=== PATIENT | male | born 1965 | race Two or more races ===

== ENCOUNTER 2018-10-13 17:02 | Emergency (ER) | payer SELFPAY ==
[2018-10-13] MEDS ORDERED: DICYCLOMINE HCL 20 MG TABLET PO ONE (17:17)
--- NOTE | 2018-10-13 17:19 | ER Document Report ---
ED Medical Screen (RME) - General Chief Complaint: Abdominal Pain Stated Complaint: SHORTNESS OF BREATH Time Seen by Provider: 10/13/18 17:07 Notes: Patient is a 53-year-old male who presents to the emergency department with a chief complaint of left lower quadrant abdominal pain. He states that his pain started today and he states that it had doubled him over. He describes his pain as a stabbing pain. He also had a similar pain in the left upper quadrant before, but it went away. He states the pain in his left lower quadrant is constant. He was started on lisinopril/hydrochlorothiazide a week ago by his primary care provider and was also diagnosed with diabetes, which he is controlling through diet. Denies any nausea, vomiting, or diarrhea. His last bowel movement was about 4 to 5 hours ago. Exam: Mildly tender abdomen in left lower quadrant. I have greeted and performed a rapid initial assessment of this patient. A comprehensive ED assessment and evaluation of the patient, analysis of test results and completion of medical decision making process will be conducted by an additional ED providers. TRAVEL OUTSIDE OF THE [place] IN LAST 30 DAYS: No - Related Data Allergies/Adverse Reactions: No Known Drug Allergies Adverse Reaction (Verified 10/13/18 17:02) Past Medical History - Social History Frequency of alcohol use: None Drug Abuse: None - Past Medical History Cardiac Medical History: Reports: Hx Hypertension Renal/ Medical History: Denies: Hx Peritoneal Dialysis - Immunizations Hx Diphtheria, Pertussis, Tetanus Vaccination: Yes Physical Exam - Vital signs Vitals: Temp Pulse Resp BP Pulse Ox 97.9 F 115 H 16 132/98 H 97 10/13/18 17:05 10/13/18 17:05 10/13/18 17:05 10/13/18 17:05 10/13/18 17:05 Course - Vital Signs Vital signs: Temp Pulse Resp BP Pulse Ox 97.9 F 115 H 16 132/98 H 97 10/13/18 17:05 10/13/18 17:05 10/13/18 17:05 10/13/18 17:05 10/13/18 17:05
[2018-10-13 18:10] LABS: ABSOLUTE BASOPHILS # (AUTO) 0.1 10^3/uL (0.0-0.2); ABSOLUTE EOSINOPHILS # (AUTO) 0.3 10^3/uL (0.0-0.6); ABSOLUTE LYMPHOCYTES (AUTO) 2.2 10^3/uL (0.5-4.7); ABSOLUTE MONOCYTES (AUTO) 0.9 10^3/uL (0.1-1.4); ABSOLUTE NEUT (AUTO) 4.8 10^3/uL (1.7-8.2); BASOPHILS % (AUTO) 0.9 % (0-2); EOSINOPHILS % (AUTO) 3.3 % (0-6); HEMATOCRIT 51.4 % (37.9-51.0); HEMOGLOBIN 17.9 g/dL (13.5-17.0); LYMPHOCYTES % (AUTO) 26.5 % (13-45); MEAN CORPUSCULAR HEMOGLOBIN 30.4 pg (27.0-33.4); MEAN CORPUSCULAR HGB CONC 34.8 g/dL (32.0-36.0); MEAN CORPUSCULAR VOLUME 87 fl (80-97); MONOCYTES % (AUTO) 10.9 % (3-13); PLATELET COUNT 195 10^3/uL (150-450); RED BLOOD COUNT 5.88 10^6/uL (4.35-5.55); RED CELL DISTRIBUTION WIDTH 13.9 % (11.5-14.0); SEGMENTED NEUTROPHILS % (AUTO) 58.4 % (42-78); TOTAL CELLS COUNTED % (AUTO) 100 %; WHITE BLOOD COUNT 8.2 10^3/uL (4.0-10.5)
[2018-10-13 18:13] LABS: APPEARANCE,URINE SLIGHTLY-CLOUDY; BILIRUBIN,URINE NEGATIVE (NEGATIVE); COLOR,URINE AMBER; GLUCOSE, URINE NEGATIVE (NEGATIVE); KETONES,URINE NEGATIVE (NEGATIVE); LEUKOCYTE ESTERASE,URINE NEGATIVE (NEGATIVE); NITRITE,URINE NEGATIVE (NEGATIVE); PROTEIN,URINE NEGATIVE (NEGATIVE); URINE SPECIFIC GRAVITY 1.025
[2018-10-13 18:16] LABS: ALBUMIN 4.5 g/dL (3.5-5.0); ALKALINE PHOSPHATASE 74 U/L (38-126); ANION GAP 12 (5-19); ASPARTATE AMINO TRANSFERASE 24 U/L (17-59); BILIRUBIN,DIRECT 0.3 mg/dL (0.0-0.4); BLOOD UREA NITROGEN 30 mg/dL (7-20); CALCIUM 10.3 mg/dL (8.4-10.2); CARBON DIOXIDE 23 mmol/L (22-30); CHLORIDE 102 mmol/L (98-107); CREATINE KINASE 105 U/L (55-170); GLUCOSE 116 mg/dL (75-110); POTASSIUM 4.1 mmol/L (3.6-5.0)
--- NOTE | 2018-10-13 18:26 | ER Document Report ---
ED General - General Chief Complaint: Abdominal Pain Stated Complaint: SHORTNESS OF BREATH Time Seen by Provider: 10/13/18 17:07 TRAVEL OUTSIDE OF THE [place] IN LAST 30 DAYS: No - HPI Notes: 53-year-old male with a history of hypertension, smoker complains of left lower quadrant abdominal pain. Patient was at rest around 5 PM when he had sudden onset of sharp crampy relatively severe left lower left mid quadrant pain. Lasts approximately 15 to 20 minutes and then abated on its own. No associated vomiting or diarrhea. No history of diverticulitis. No fever, chills or sweats. Moderate intensity, nonradiating. States this is happened to him in the past and may occur every few months. No history of renal stones. No blood in his urine. No other modifying factors, no other associated symptoms, no other provocative or palliative factors. - Related Data Allergies/Adverse Reactions: No Known Drug Allergies Adverse Reaction (Verified 10/13/18 17:02) Past Medical History - Social History Smoking Status: Unknown if Ever Smoked Frequency of alcohol use: None Drug Abuse: None Family History: Reviewed & Not Pertinent Patient has suicidal ideation: No Patient has homicidal ideation: No - Past Medical History Cardiac Medical History: Reports: Hx Hypertension Renal/ Medical History: Denies: Hx Peritoneal Dialysis - Immunizations Hx Diphtheria, Pertussis, Tetanus Vaccination: Yes Physical Exam - Vital signs Vitals: Temp Pulse Resp BP Pulse Ox 97.9 F 115 H 16 132/98 H 97 10/13/18 17:05 10/13/18 17:05 10/13/18 17:05 10/13/18 17:05 10/13/18 17:05 - Notes Notes: General: Well developed . HEENT: Normocephalic, atraumatic. Pupils equal round reactive to light. No JVD. Chest: No trauma. Respiratory: Good air exchange, normal excursion. Cardiac: Regular rhythm. No murmurs or gallops. Abdomen: Soft, benign. Nondistended. Nontender. Back: No asymmetry or gross abnormality. Motor: Grossly normal power and tone. Neurologic: Alert, nonfocal. Cranial nerves II-12 are intact. Sensation intact. Vascular: Well perfused. Normal peripheral pulses. Skin: No petechiae or purpura. Course - Re-evaluation Re-evalutation: 08/10/19 18:29 Labs reviewed. CBC chemistries LFTs unremarkable. Urine unremarkable. Acute abdominal series is unremarkable. Patient has benign exam and reevaluation. At this point I believe he safe her primary care follow-up, will return if worsening, 24-hour recheck. - Vital Signs Vital signs: Temp Pulse Resp BP Pulse Ox 97.9 F 115 H 16 132/98 H 99 10/13/18 17:05 10/13/18 17:05 10/13/18 17:05 10/13/18 17:05 10/13/18 17:30 - Laboratory Result Diagrams: 10/13/18 17:25 10/13/18 17:25 Laboratory results interpreted by me: 10/13/18 10/13/18 10/13/18 17:25 17:25 17:45 RBC 5.88 H Hgb 17.9 H Hct 51.4 H Sodium 136.6 L BUN 30 H Creatinine 1.49 H Est GFR (Non-Af Amer) 50 L Glucose 116 H Calcium 10.3 H Urine Urobilinogen 2.0 H - Transfer of Care Notes: 53-year-old male presents with resolved left lower quadrant abdominal pain. Will consider transient renal colic, diverticulitis unlikely given the rapidity of onset and offset. No high risk features to suggest vascular emergency and p ain is resolved. Doubt AAA. Patient was seen by the physician in triage she was ordered studies and labs. These are currently pending. Will perform serial abdominal exams and reevaluate. Discharge - Discharge Clinical Impression: Abdominal pain Qualifiers: Abdominal location: left lower quadrant Qualified Code(s): R10.32 - Left lower quadrant pain Condition: Stable Disposition: HOME, SELF-CARE Instructions: Abdominal Pain ([facility]) Additional Instructions: Follow-up with your primary care doctor within 24 to 48 hours Prescriptions: Dicyclomine HCl [Bentyl 20 mg Tablet] 20 mg PO Q8 #12 tablet Dicyclomine HCl [Bentyl 20 mg Tablet] 20 mg PO Q8 #12 tablet Forms: Smoking Cessation Education
--- NOTE | 2018-10-13 18:27 | RADIOLOGY REPORT (SQ) ---
EXAM DESCRIPTION: ACUTE ABDOMEN SERIES COMPLETED DATE/TIME: 10/13/2018 6:05 pm REASON FOR STUDY: LLQ abd pain/shortness of breath COMPARISON: None. NUMBER OF VIEWS: Four-views. TECHNIQUE: Frontal chest, supine abdomen and upright/decubitus abdomen radiographic images acquired. LIMITATIONS: None. FINDINGS: CHEST: Lungs clear of infiltrates. FREE AIR: None. No abnormal gas collections. BOWEL GAS PATTERN: Nonobstructive pattern. No dilated loops or air fluid levels. CALCIFICATIONS: No suspicious calcifications. HARDWARE: None in the abdomen. SOFT TISSUES: No gross mass or suggestion of organomegaly. BONES: No acute fracture. No worrisome bone lesions. OTHER: No other significant finding. IMPRESSION: NO RADIOGRAPHIC EVIDENCE FOR ACUTE ABDOMINAL DISEASE. TECHNICAL DOCUMENTATION: JOB ID: [id number] [employer]- All Rights Reserved Reading location - IP/workstation name: [email or web address]
[2018-10-13 18:29] LABS: CREATINE KINASE MB 0.46 ng/mL (<4.55); TROPONIN I < 0.012 ng/mL
--- NOTE | 2018-10-13 18:30 | EKG REPORT ---
SEVERITY:- ABNORMAL ECG - SINUS TACHYCARDIA BORDERLINE RIGHT AXIS DEVIATION NONSPECIFIC T ABNORMALITIES, INFERIOR LEADS : Confirmed by: Haris Magana MD 13-Oct-2018 18:29:47
[2018-10-13 19:08] VITALS: BP 105/70
== END 2018-10-13 19:13 | disposition home or self-care (01) ==
LOC: ER 17:02
DX: R10.32 Left lower quadrant pain (principal); R06.02 Shortness of breath; I10 Essential (primary) hypertension
CPT/HCPCS: 93005; 99284; 36415; 82553; 82550; 85025; 80053; 81001; 84484; 74022; 93010; J3490

== ENCOUNTER 2019-06-25 18:21 | Emergency (ER) | payer BC ==
--- NOTE | 2019-06-25 18:33 | ER Document Report ---
ED General - General Chief Complaint: Breathing Difficulty Stated Complaint: DIFFICULTY BREATHING Primary Care Provider: FLORENCIO PATEL MD [Primary Care Provider] - Follow up as needed Notes: 53-year-old male presents with shortness of breath. Intermittent for about a week. Has had the same in the past and has not gotten a good answer as to why it is occurring. He smokes some does not have COPD emphysema or CHF. He has no chest pain or palpitations. Shortness of breath occurred about 2 weeks ago he was diagnosed with some kind of disease and given "multiple antibacterial agents" after a telemetry visited urgent care without an x-ray or physical exam. He got slightly better but is now intermittently having shortness of breath as well. Not always exertional not always positional, random. Mild dry cough that was much better than it was before. No fever. No exposure to coronavirus patients, and has had a negative coronavirus test in the last 3 days. Denies edema or swelling. TRAVEL OUTSIDE OF THE [place] IN LAST 30 DAYS: No - Related Data Allergies/Adverse Reactions: No Known Drug Allergies Adverse Reaction (Verified 10/13/18 17:02) Past Medical History - Social History Smoking Status: Current Every Day Smoker Smoking Education Provided: Yes - The patient ED visit today was directly related to their abuse of tobacco. Family History: Reviewed & Not Pertinent - Past Medical History Cardiac Medical History: Reports: Hx Hypertension Renal/ Medical History: Denies: Hx Peritoneal Dialysis - Immunizations Hx Diphtheria, Pertussis, Tetanus Vaccination: Yes Review of Systems - Review of Systems Notes: REVIEW OF SYSTEMS GEN: Denies fever, chills, weight loss ENT: Denies sore throat, nasal discharge, ear pain EYES: Denies blurry vision, eye pain, discharge CV: Denies chest pain, palpitations, edema RESP: Dyspnea GI: Denies abdominal pain, nausea, vomiting, diarrhea MSK: Denies joint pain/swelling, edema, SKIN: Denies rash, skin lesions LYMPH: Denies swollen glands/lymph nodes NEURO: Denies headache, focal weakness or numbness, dizziness PSYCH: Denies depression, suicidal or homicidal ideation PHYSICAL EXAMINATION General: No acute distress, well-nourished Head: Atraumatic, normocephalic ENT: Mouth normal, oropharynx moist, no exudates or tonsillar enlargement Eyes: Conjunctiva normal, pupils equal, lids normal Neck: No JVD, supple, no guarding CVS: Normal rate, regular rhythm, no murmurs Resp: No resp distress, equal and normal breath sounds bilaterally GI: Nondistended, soft, no tenderness to palpation, no rebound or guarding Ext: No deformities, no edema, normal range of motion in upper and lower ext Back: No CVA or midline TTP Skin: No rash, warm Lymphatic: No lymphadeopathy noted Neuro: Awake, alert. Face symmetric. GCS 15. Physical Exam - Vital signs Vitals: Temp Pulse Resp BP Pulse Ox 98.5 F 100 17 111/80 95 06/25/19 18:32 06/25/19 18:32 06/25/19 18:32 06/25/19 18:32 06/25/19 18:32 Course - Re-evaluation Re-evalutation: 06/25/19 18:50 Patient presents with intermittent shortness of breath for a couple of weeks. His vitals are normal he is afebrile he is negative for coronavirus which portends at least a 75% chance of him actually being negative, has no fever current signs of dyspnea, stigmata of heart failure COPD on exam. Will check chest x-ray to rule out pneumonia/pneumothorax/pulmonary edema, and check EKG to rule out significant arrhythmia ischemia or structural disease but based on his current presentation he can be discharged if this work-up is negative. I have discussed with the patient there likely diagnosis, aftercare plan, follow-up plans and my usual and customary return precautions. They verbalized understanding of this. - Vital Signs Vital signs: Temp Pulse Resp BP Pulse Ox 98.5 F 100 17 111/80 95 06/25/19 18:32 06/25/19 18:32 06/25/19 18:32 06/25/19 18:32 06/25/19 18:32 - Diagnostic Test Radiology reviewed: Image reviewed, Reports reviewed - EKG Interpretation by Me EKG shows normal: Sinus rhythm Rate: Normal Rhythm: NSR Discharge - Discharge Clinical Impression: Shortness of breath Condition: Good Disposition: HOME, SELF-CARE Instructions: Dyspnea, Nonspecific ([facility]) Additional Instructions: Please follow-up with your primary care within 1 week for further testing as needed. Please return to the ER for any worsening symptoms. Referrals: FLORENCIO PATEL MD [Primary Care Provider] - Follow up as needed
[2019-06-25 19:05] VITALS: BP 111/80
--- NOTE | 2019-06-25 19:15 | RADIOLOGY REPORT (SQ) ---
EXAM DESCRIPTION: CHEST SINGLE VIEW IMAGES COMPLETED DATE/TIME: 06/25/2019 7:03 pm REASON FOR STUDY: SOB COMPARISON: 2016 NUMBER OF VIEWS: One view. TECHNIQUE: Single frontal radiographic view of the chest acquired. LIMITATIONS: None. FINDINGS: LUNGS AND PLEURA: No opacities, masses or pneumothorax. No pleural effusion. MEDIASTINUM AND HILAR STRUCTURES: No masses. Contour normal. HEART AND VASCULAR STRUCTURES: Heart normal in size. Normal vasculature. BONES: No acute findings. HARDWARE: None in the chest. OTHER: No other significant finding. IMPRESSION: NO SIGNIFICANT RADIOGRAPHIC FINDING IN THE CHEST. TECHNICAL DOCUMENTATION: JOB ID: [id number] 2010 [employer]- All Rights Reserved Reading location - IP/workstation name: [email or web address]
--- NOTE | 2019-06-26 07:19 | EKG REPORT ---
SEVERITY:- NORMAL ECG - SINUS RHYTHM VPC : Confirmed by: Freddie Cloud 26-Jun-2019 07:19:00
== END 2019-06-25 19:00 | disposition home or self-care (01) ==
LOC: ER 18:21
DX: R06.02 Shortness of breath (principal); R05 Cough; F17.200 Nicotine dependence, unspecified, uncomplicated; I10 Essential (primary) hypertension
CPT/HCPCS: 71045; 93005; 93010; 99285

== ENCOUNTER 2019-08-14 03:04 | Emergency (ER) | payer BC ==
--- NOTE | 2019-08-14 03:34 | ER Document Report ---
ED Medical Screen (RME) - General Stated Complaint: DIFFICULT IN BREATHING/SORE THROAT Time Seen by Provider: 08/14/19 03:31 Primary Care Provider: FLORENCIO PATEL MD [Primary Care Provider] - Follow up as needed Notes: Patient is a 53-year-old male who presents to the emergency department with a chief complaint of shortness of breath. Patient states that he has had some shortness of breath for the past about a month. He was tested for COVID-19, and states that that was negative. He also recently had an antibody test, which he reports is negative. Patient is a current everyday smoker. Exam: Clear lung sounds throughout. I have greeted and performed a rapid initial assessment of this patient. A comprehensive ED assessment and evaluation of the patient, analysis of test results and completion of medical decision making process will be conducted by an additional ED providers. TRAVEL OUTSIDE OF THE [place] IN LAST 30 DAYS: No - Related Data Allergies/Adverse Reactions: No Known Drug Allergies Adverse Reaction (Verified 10/13/18 17:02) Past Medical History - Social History Frequency of alcohol use: None Drug Abuse: None - Past Medical History Cardiac Medical History: Reports: Hx Hypertension Renal/ Medical History: Denies: Hx Peritoneal Dialysis - Immunizations Hx Diphtheria, Pertussis, Tetanus Vaccination: Yes Physical Exam - Vital signs Vitals: Temp Pulse Resp BP Pulse Ox 98.5 F 85 20 167/99 H 98 08/14/19 03:16 08/14/19 03:16 08/14/19 03:16 08/14/19 03:16 08/14/19 03:16 Course - Vital Signs Vital signs: Temp Pulse Resp BP Pulse Ox 98.5 F 85 20 167/99 H 98 08/14/19 03:27 08/14/19 03:16 08/14/19 03:16 08/14/19 03:16 08/14/19 03:16 Doctor's Discharge - Discharge Referrals: FLORENCIO PATEL MD [Primary Care Provider] - Follow up as needed
[2019-08-14 03:52] LABS: ABSOLUTE BASOPHILS # (AUTO) 0.1 10^3/uL (0.0-0.2); ABSOLUTE EOSINOPHILS # (AUTO) 0.2 10^3/uL (0.0-0.6); ABSOLUTE LYMPHOCYTES (AUTO) 1.5 10^3/uL (0.5-4.7); ABSOLUTE MONOCYTES (AUTO) 0.5 10^3/uL (0.1-1.4); ABSOLUTE NEUT (AUTO) 3.1 10^3/uL (1.7-8.2); BASOPHILS % (AUTO) 1.3 % (0-2); EOSINOPHILS % (AUTO) 3.8 % (0-6); HEMATOCRIT 48.4 % (37.9-51.0); HEMOGLOBIN 16.8 g/dL (13.5-17.0); LYMPHOCYTES % (AUTO) 28.5 % (13-45); MEAN CORPUSCULAR HEMOGLOBIN 31.3 pg (27.0-33.4); MEAN CORPUSCULAR HGB CONC 34.6 g/dL (32.0-36.0); MEAN CORPUSCULAR VOLUME 90 fl (80-97); PLATELET COUNT 179 10^3/uL (150-450); RED BLOOD COUNT 5.35 10^6/uL (4.35-5.55); RED CELL DISTRIBUTION WIDTH 13.8 % (11.5-14.0); SEGMENTED NEUTROPHILS % (AUTO) 57.4 % (42-78); TOTAL CELLS COUNTED % (AUTO) 100 %; WHITE BLOOD COUNT 5.3 10^3/uL (4.0-10.5)
[2019-08-14 04:17] LABS: ALBUMIN 4.5 g/dL (3.5-5.0); ALKALINE PHOSPHATASE 60 U/L (38-126); ANION GAP 10 (5-19); ASPARTATE AMINO TRANSFERASE 26 U/L (17-59); BILIRUBIN,TOTAL 0.4 mg/dL (0.2-1.3); BLOOD UREA NITROGEN 10 mg/dL (7-20); CALCIUM 10.1 mg/dL (8.4-10.2); CARBON DIOXIDE 23 mmol/L (22-30); CHLORIDE 106 mmol/L (98-107); GLUCOSE 126 mg/dL (75-110); POTASSIUM 4.1 mmol/L (3.6-5.0); TOTAL PROTEIN 7.7 g/dL (6.3-8.2)
--- NOTE | 2019-08-14 05:11 | RADIOLOGY REPORT (SQ) ---
CLINICAL HISTORY: shortness of breath COMPARISON: None. TECHNIQUE: XR CHEST 2 VIEWS 08/14/2019 3:31 AM CDT FINDINGS: Cardiac silhouette is normal in size. Lungs are clear without consolidation, atelectasis, mass or edema. There is no pleural effusion. There is no pneumothorax. There are no acute osseous findings. IMPRESSION: Clear lungs.
--- NOTE | 2019-08-14 08:22 | ER Document Report ---
ED General - General Chief Complaint: Breathing Difficulty Stated Complaint: DIFFICULT IN BREATHING/SORE THROAT Time Seen by Provider: 08/14/19 03:31 Primary Care Provider: FLORENCIO PATEL MD [Primary Care Provider] - Follow up as needed Mode of Arrival: Ambulatory Information source: Patient TRAVEL OUTSIDE OF THE [place] IN LAST 30 DAYS: No - HPI Onset: Other - over the last month Onset/Duration: Gradual Quality of pain: No pain Severity: Moderate Associated symptoms: Nonproductive cough Exacerbated by: Other - exertion Relieved by: Other - rest Similar symptoms previously: No Recently seen / treated by doctor: No Notes: 53 year old male smoker with a history of Hypertension and Obesity here in the ER for 1 month of shortness of breath. The patient was seen here in June 2019 for shortness of breath and has a work up which showed no acute process. The patient denies chest pain, fevers, chills, sweats, nausea, vomiting. The patient does endorse a scratchy throat and swollen sinuses at times. The patient says she has an ENT appointment scheduled for this issue. The patient says she feels out of breath with minimal activity and this is new for him. The patient smokes and he has never been worked up for COPD. The patient has a family history of CAD and he has never been worked up for this either. - Related Data Allergies/Adverse Reactions: No Known Drug Allergies Adverse Reaction (Verified 10/13/18 17:02) Past Medical History - General Information source: Patient - Social History Smoking Status: Current Every Day Smoker Frequency of alcohol use: None Drug Abuse: None Family History: Reviewed & Not Pertinent Patient has homicidal ideation: No - Past Medical History Cardiac Medical History: Reports: Hx Hypertension Renal/ Medical History: Denies: Hx Peritoneal Dialysis - Immunizations Hx Diphtheria, Pertussis, Tetanus Vaccination: Yes Review of Systems - Review of Systems Constitutional: Weakness EENT: Throat pain Cardiovascular: No symptoms reported Respiratory: Cough, Short of breath Gastrointestinal: No symptoms reported Genitourinary: No symptoms reported Male Genitourinary: No symptoms reported Musculoskeletal: No symptoms reported Skin: No symptoms reported Hematologic/Lymphatic: No symptoms reported Neurological/Psychological: No symptoms reported -: Yes All other systems reviewed and negative Physical Exam - Vital signs Vitals: Temp Pulse Resp BP Pulse Ox 98.5 F 85 20 167/99 H 98 08/14/19 03:16 06/10/20 03:16 08/14/19 03:16 08/14/19 03:16 08/14/19 03:16 - Notes Notes: GENERAL: Well-appearing, well-nourished and in no acute distress. HEAD: Atraumatic, normocephalic. EYES: Pupils equal round and reactive to light, extraocular movements intact, sclera anicteric, conjunctiva are normal. ENT: External ears normal, nares patent, oropharynx clear without exudates. Moist mucous membranes. NECK: Normal range of motion, supple without lymphadenopathy or JVD. LUNGS: Breath sounds clear to auscultation bilaterally and equal. No wheezes rales or rhonchi. HEART: Regular rate and rhythm without murmurs, rubs or gallops. ABDOMEN: Soft, nontender, normoactive bowel sounds. No guarding, no rebound. No masses appreciated. EXTREMITIES: Normal range of motion, no pitting or edema. No clubbing or cyanosis. NEUROLOGICAL: Cranial nerves II through XII grossly intact. Normal speech, normal gait. PSYCH: Normal mood, normal affect. SKIN: Warm, Dry, normal turgor, no rashes or lesions noted. Course - Re-evaluation Re-evalutation: 08/14/19 11:48 The patient is here for 1 month of shortness of breath. Work up was unremarkable except for an elevated D-Dimer. Follow up CT showed no PE but some lung nodules. Patient was told to follow up with a Locomotive Repairer Diesel for work up of possible COPD and Sleep Apnea and to follow his lung nodules. Patient told to follow up with a Motorcycle Riding Instructor for an outpatient cardiac stress test for work up of possible CAD. Patient already has a follow up with ENT for work up of sinus issues. - Vital Signs Vital signs: Temp Pulse Resp BP Pulse Ox 98.5 F 85 13 113/75 99 08/14/19 03:27 08/14/19 03:16 08/14/19 10:46 08/14/19 10:46 08/14/19 10:46 - Laboratory Result Diagrams: 08/14/19 03:42 08/14/19 03:42 Laboratory results interpreted by me: 08/14/19 08/14/19 03:42 03:42 D-Dimer 1.45 H Glucose 126 H - Diagnostic Test Radiology reviewed: Image reviewed, Reports reviewed - EKG Interpretation by Me EKG shows normal: Sinus rhythm, Intervals, QRS Complexes, ST-T Waves Rate: Normal Rhythm: NSR [place]/QRS: Left axis deviation When compared to previous EKG there are: No significant change Additional EKG results interpreted by me: 08/14/19 08:22 PVCs Discharge - Discharge Clinical Impression: Shortness of breath, Weakness Condition: Stable Disposition: HOME, SELF-CARE Additional Instructions: Follow up with your primary care doctor and consider follow up with a Locomotive Repairer Diesel (Lung Doctor) and Motorcycle Riding Instructor (Heart Doctor). You have been having trouble breathing. You have follow up with an ENT Doctor scheduled and you can have your sinuses evaluated there. You may need to be worked up for COPD and Sleep Apnea by a Locomotive Repairer Diesel so discuss with them. You had a CT Chest in the ER today which showed a lung nodule but no blood clots or evidence of COPD. You should have an outpatient cardiac stress test to ensure your heart is not the cause of your shortness of breath. Referrals: FLORENCIO PATEL MD [Primary Care Provider] - Follow up as needed
--- NOTE | 2019-08-14 10:49 | RADIOLOGY REPORT (SQ) ---
EXAM DESCRIPTION: CTA CHEST IMAGES COMPLETED DATE/TIME: 08/14/2019 10:31 am REASON FOR STUDY: eval for PE COMPARISON: PA and lateral views of the chest from 05/14/2019. TECHNIQUE: CT scan of the chest performed using helical scanning technique with dynamic intravenous contrast injection. Images reviewed with lung, soft tissue and bone windows. Reconstructed coronal and sagittal MPR images reviewed. Additional 3 dimensional post-processing performed to develop Maximal Intensity Projection images (AK P). All images stored on PACS. All CT scanners at this facility use dose modulation, iterative reconstruction, and/or weight based d osing when appropriate to reduce radiation dose to as low as reasonably achievable (ALARA). [facility]: Dose Right [facility]: CareDose [facility]: Dose Right [facility]: Teradose 4D [facility]: Attachments.me CONTRAST TYPE AND DOSE: 72 mL Omnipaque 350- low osmolar. Contrast bolus optimized for the pulmonary arteries. RENAL FUNCTION: Creatinine 1.04 milligrams/deciliter RADIATION DOSE: CT Rad equipment meets quality standard of care and radiation dose reduction techniq ues were employed. CTDIvol: 9.9 - 27.4 mGy. DLP: 1120 mGy-cm. LIMITATIONS: None. FINDINGS: LUNGS AND PLEURA: The trachea and main bronchi are patent. There is no consolidation, miguel und-glass opacification or pleural effusion. LUNG NODULES: 4 mm perifissural nodule in the right middle lobe (image 62 of series 4), solid 4 mm no dule in the right lower lobe (image 74 of series 4) and solid 4 mm nodule in the left lower lobe (natasha ge 92 of series 4). AORTA AND GREAT VESSELS: Variant 2 vessel arch with a common origin of the brachiocephalic and left common carotid arteries. There is no thoracic aortic dissection or aneurysm. HEART: No cardiomegaly or pericardial effusion. PULMONARY ARTERIES: No emboli. HILAR AND MEDIASTINAL STRUCTURES: No adenopathy or mass. HARDWARE: None in the chest. UPPER ABDOMEN: No acute findings. THYROID AND OTHER SOFT TISSUES: No mass or adenopathy. BONES: No fracture or osseous lesion. 3D MIPS: Confirm above findings. OTHER: No other finding. IMPRESSION: 1. No pulmonary emboli. 2. No acute cardiopulmonary process. 3. Solid 4 mm nodules in the right lower lobe and left lower lobe. Per the 2017 Fleischner Society criteria a patient at low risk for lung cancer with multiple solid nodules that measure less than 6 m m requires no routine follow-up. COMMENT: Quality ID # [id number]: Final reports with documentation of one or more dose reduction techniques (e.g., Automated exposure control, adjustment of the mA and/or kV according to patient size, use of iterative reconstruction technique) TECHNICAL DOCUMENTATION: JOB ID: [id number] 2010 [employer]- All Rights Reserved Reading location - IP/workstation name: [email or web address]
--- NOTE | 2019-08-14 11:08 | EKG REPORT ---
SEVERITY:- BORDERLINE ECG - SINUS RHYTHM VENTRICULAR PREMATURE COMPLEX LEFT AXIS DEVIATION BORDERLINE T WAVE ABNORMALITIES : Confirmed by: Marcelle Amin MD 14-Aug-2019 11:08:13
[2019-08-14 12:02] VITALS: BP 138/85
== END 2019-08-14 12:03 | disposition home or self-care (01) ==
LOC: ER 03:04
DX: R06.02 Shortness of breath (principal); R53.1 Weakness; R91.8 Other nonspecific abnormal finding of lung field; R79.89 Other specified abnormal findings of blood chemistry; I10 Essential (primary) hypertension; R05 Cough; J02.9 Acute pharyngitis, unspecified; F17.200 Nicotine dependence, unspecified, uncomplicated; Z82.49 Family history of ischemic heart disease and other diseases of the circulatory system
CPT/HCPCS: 36415; 71046; 71275; 80053; 83880; 84484; 85025; 85379; 93005; 93010; 99285

== ENCOUNTER → 2019-08-14 | Outpatient (CLI) | payer BC | LOC: OD 17:01 | PROVIDERS: ATTEND Otolaryngology | DX: J30.9 Allergic rhinitis, unspecified (principal) | CPT/HCPCS: 36415; 82785; 86003 ==

== ENCOUNTER 2019-10-11 07:46 | Emergency (ER) | payer BC ==
--- NOTE | 2019-10-11 09:39 | EKG REPORT ---
SEVERITY:- NORMAL ECG - SINUS RHYTHM : Confirmed by: Haris Magana MD 11-Oct-2019 09:39:30
--- NOTE | 2019-10-11 10:25 | RADIOLOGY REPORT (SQ) ---
EXAM DESCRIPTION: CHEST SINGLE VIEW IMAGES COMPLETED DATE/TIME: 10/11/2019 10:15 am REASON FOR STUDY: shortness of breath COMPARISON: 10/03/2019 EXAM PARAMETERS: NUMBER OF VIEWS: One view. TECHNIQUE: Single frontal radiographic view of the chest acquired. RADIATION DOSE: NA LIMITATIONS: None. FINDINGS: LUNGS AND PLEURA: No opacities, masses or pneumothorax. No pleural effusion. MEDIASTINUM AND HILAR STRUCTURES: No masses. Contour normal. HEART AND VASCULAR STRUCTURES: Heart normal in size. Normal vasculature. BONES: No acute findings. HARDWARE: None in the chest. OTHER: No other significant finding. IMPRESSION: NO ACUTE RADIOGRAPHIC FINDING IN THE CHEST. TECHNICAL DOCUMENTATION: JOB ID: [id number] [employer]- All Rights Reserved Reading location - IP/workstation name: [email or web address]
[2019-10-11 11:07] LABS: APPEARANCE,URINE CLEAR; BILIRUBIN,URINE NEGATIVE (NEGATIVE); COLOR,URINE STRAW; GLUCOSE, URINE NEGATIVE (NEGATIVE); KETONES,URINE TRACE mg/dL (NEGATIVE); LEUKOCYTE ESTERASE,URINE NEGATIVE (NEGATIVE); NITRITE,URINE NEGATIVE (NEGATIVE); PROTEIN,URINE NEGATIVE (NEGATIVE); URINE SPECIFIC GRAVITY 1.005; UROBILINOGEN,URINE NEGATIVE mg/dL (<2.0)
[2019-10-11 11:09] LABS: ABSOLUTE BASOPHILS # (AUTO) 0.1 10^3/uL (0.0-0.2); ABSOLUTE EOSINOPHILS # (AUTO) 0.4 10^3/uL (0.0-0.6); ABSOLUTE LYMPHOCYTES (AUTO) 1.5 10^3/uL (0.5-4.7); ABSOLUTE MONOCYTES (AUTO) 0.4 10^3/uL (0.1-1.4); ABSOLUTE NEUT (AUTO) 3.5 10^3/uL (1.7-8.2); BASOPHILS % (AUTO) 1.2 % (0-2); EOSINOPHILS % (AUTO) 6.1 % (0-6); HEMATOCRIT 50.5 % (37.9-51.0); HEMOGLOBIN 17.3 g/dL (13.5-17.0); LYMPHOCYTES % (AUTO) 25.7 % (13-45); MEAN CORPUSCULAR HEMOGLOBIN 30.6 pg (27.0-33.4); MEAN CORPUSCULAR HGB CONC 34.3 g/dL (32.0-36.0); MEAN CORPUSCULAR VOLUME 89 fl (80-97); MONOCYTES % (AUTO) 7.3 % (3-13); PLATELET COUNT 177 10^3/uL (150-450); RED BLOOD COUNT 5.68 10^6/uL (4.35-5.55); SEGMENTED NEUTROPHILS % (AUTO) 59.7 % (42-78); TOTAL CELLS COUNTED % (AUTO) 100 %; WHITE BLOOD COUNT 5.9 10^3/uL (4.0-10.5)
[2019-10-11 11:26] LABS: ALBUMIN 4.6 g/dL (3.5-5.0); ALKALINE PHOSPHATASE 68 U/L (38-126); ANION GAP 8 (5-19); ASPARTATE AMINO TRANSFERASE 28 U/L (17-59); BLOOD UREA NITROGEN 9 mg/dL (7-20); CARBON DIOXIDE 26 mmol/L (22-30); CHLORIDE 104 mmol/L (98-107); GLUCOSE 112 mg/dL (75-110); TOTAL PROTEIN 7.9 g/dL (6.3-8.2)
[2019-10-11 11:38] LABS: NT PRO BNP 38 pg/mL (<125)
[2019-10-11 11:40] LABS: TROPONIN I < 0.012 ng/mL
--- NOTE | 2019-10-11 14:07 | ER Document Report ---
Entered by EMILIANA NEVAREZ SCRIBE 10/11/19 1114 Acting as scribe for:YU BACA MD ED Respiratory Problem - General Chief Complaint: Shortness Of Breath Stated Complaint: SHORTNESS OF BREATH,SORE THROAT Time Seen by Provider: 10/11/19 10:13 Primary Care Provider: RENARD WALTON MD [Primary Care Provider] - Follow up as needed Information source: Patient Notes: This 54-year-old male patient presents to the emergency department today with complaints of continued shortness of breath. Patient states that this has been an ongoing issue for at least 3 months. Last week the patient had a pulmonary function test which was normal and the next day he came into the emergency department for shortness of breath. At that time he told the provider that "his lungs just did not feel like they were expanding". Reviewing the note from that visit, it mentions that it sounds like he was just here to have his scheduled echocardiogram done in the emergency department. Patient has an echo scheduled for next week outpatient. Patient denies any cold exposure, cough, or fevers. TRAVEL OUTSIDE OF THE [place] IN LAST 30 DAYS: No - Related Data Allergies/Adverse Reactions: No Known Drug Allergies Adverse Reaction (Verified 10/13/18 17:02) Home Medications: hydrochlorothiazide Past Medical History - General Information source: Patient - Social History Smoking Status: Former Smoker - 30 year history. quit 1.5 months ago Cigarette use (# per day): No Chew tobacco use (# tins/day): No Frequency of alcohol use: None Drug Abuse: None Lives with: Family Family History: Reviewed & Not Pertinent - Past Medical History Cardiac Medical History: Reports: Hx Hypertension Pulmonary Medical History: Reports: Hx Asthma Surgical Hx: Negative - Immunizations Hx Diphtheria, Pertussis, Tetanus Vaccination: Yes Review of Systems - Review of Systems Constitutional: denies: Fever EENT: No symptoms reported Cardiovascular: No symptoms reported Respiratory: See HPI, Short of breath - chest heaviness. denies: Cough Gastrointestinal: No symptoms reported Genitourinary: No symptoms reported Male Genitourinary: No symptoms reported Musculoskeletal: No symptoms reported Skin: No symptoms reported Hematologic/Lymphatic: No symptoms reported Neurological/Psychological: No symptoms reported -: Yes All other systems reviewed and negative Physical Exam - Vital signs Vitals: Temp Pulse Resp BP Pulse Ox 98.8 F 80 18 139/92 H 99 10/11/19 07:52 10/11/19 07:52 10/11/19 07:52 10/11/19 07:52 10/11/19 07:52 - Notes Notes: Physical Exam: General: Alert, appears well. HEENT: Normocephalic. Atraumatic. PERRL. Extraocular movements intact. Oropharynx clear. Neck: Supple. Non-tender. Respiratory: No respiratory distress. Clear and equal breath sounds bilaterally. Cardiovascular: Regular rate and rhythm. Normal S1 S2. Abdominal: Obese. Non-tender. No distension. Normal Bowel Sounds. Back: No gross abnormalities. Extremities: Moves all four extremities. Upper extremities: Normal inspection. Normal ROM. Lower extremities: Normal inspection. No edema. Normal ROM. Neurological: Normal cognition. AAOx4. Normal speech. Psychological: Normal affect. Normal Mood. Skin: Warm. Dry. Normal color. Course - Re-evaluation Re-evalutation: 10/11/19 14:01 Patient not showing any acute signs of distress with respirations. Patient appears to be stable. - Vital Signs Vital signs: Temp Pulse Resp BP Pulse Ox 98.8 F 80 18 139/92 H 99 10/11/19 09:57 10/11/19 07:52 10/11/19 07:52 10/11/19 07:52 10/11/19 07:52 10/11/19 14:01 Vital signs essentially unremarkable patient does have hypertension blood pressure is 139/92 pulse ox is 99% with a respiratory rate of 18. Afebrile - Laboratory Result Diagrams: 10/11/19 10:45 10/11/19 10:45 Laboratory results interpreted by me: 10/11/19 10/11/19 10/11/19 10:45 10:45 10:45 RBC 5.68 H Hgb 17.3 H Eos % (Auto) 6.1 H Glucose 112 H Urine Ketones TRACE H Labs within normal limits patient does have an elevated hemoglobin and RBC count consistent with hemoconcentration perhaps due to dehydration. Patient had trace ketones in his urine again an element of dehydration. - Diagnostic Test Radiology reviewed: Image reviewed, Reports reviewed Radiology results interpreted by me: 10/11/19 14:02 Chest x-ray shows no acute process no infiltrate. - EKG Interpretation by Me Additional EKG results interpreted by me: 10/11/19 14:03 Twelve-lead EKG shows a normal sinus rhythm rate no acute ST-T wave changes. Discharge - Discharge Clinical Impression: Shortness of breath Condition: Stable Disposition: HOME, SELF-CARE Additional Instructions: Your complaint today of shortness of breath does not show that you are having any cardiopulmonary disease noted at this time. As you have indicated you seen the gas scrubber operator and had pulmonary function testing. And from that you were referred to follow-up with cardiology and have an echocardiogram. We recommend you continue to follow through as recommended and follow-up with your gas scrubber operator as indicated. There are no new prescriptions written today. Continue your medications as you are taking for your blood pressure management. Referrals: RENARD WALTON MD [Primary Care Provider] - Follow up as needed I personally performed the services described in the documentation, reviewed and edited the documentation which was dictated to the scribe in my presence, and it accurately records my words and actions.
[2019-10-11 14:48] VITALS: BP 125/97
== END 2019-10-11 14:47 | disposition home or self-care (01) ==
LOC: ER 07:46
DX: J45.909 Unspecified asthma, uncomplicated (principal); R06.02 Shortness of breath; R09.89 Other specified symptoms and signs involving the circulatory and respiratory systems; I10 Essential (primary) hypertension; Z79.899 Other long term (current) drug therapy; Z87.891 Personal history of nicotine dependence
CPT/HCPCS: 36415; 71045; 80053; 81001; 83880; 84484; 85025; 93005; 93010; 99285

== ENCOUNTER → 2019-10-15 | Outpatient (CLI) | payer BC ==
--- NOTE | 2019-10-15 18:44 | XCELERA REPORT ---
[address] [address] Transthoracic Echocardiogram Report Name: ASHLYN MARTÍNEZ Age: 54 yrs Gender: Male : 1965 Patient Status: Outpatient Patient Location: Study Date: 10/15/2019 09:03 AM Height: 70 in Weight: 255 lb BSA: 2.3 m2 Procedure: A complete two-dimensional transthoracic echocardiogram was performed (2D, M-mode, spectral and color flow Doppler). The study was technically difficult with many images being suboptimal in quality. Reason For Study: DYSPNEA Ordering Physician: RENARD WALTON Performed By: Violet Page Interpretation Summary FINDINGS: LEFT VENTRICLE: LV Systolic function: LVEF is felt to be within normal limits. Best estimate is approximately LVEF is 60 %. LV Diastolic Function: Grade II diastolic dysfunction noted. Wall motion : Not all wall segment were well visualized. Regional wall motion cannot be accurately commented upon. Left ventricular chamber size : is within normal limit. Left ventricular wall thickness : is increased indicative of mild LVH. INTERVENTRICULAR SEPTUM: no evidence of VSD noted. No asymmetric hypertrophy noted. RIGHT VENTRICLE: RV systolic function : is felt to be within normal limit. Right Ventricle Size : borderline dilated. LEFT ATRIUM size : Moderately dilated. RIGHT ATRIUM size : is within normal limit. INTER ATRIAL SEPTUM : No definite atrial septal defect noted however a small PFO could be missed. AORTIC ROOT : seems to be within normal limits. Ascending aorta is not well visualized. INFERIOR VENA CAVA: Not well visualized. VALVES: MITRAL VALVE : Leaflets are mildly thickened. Mobility seems to be within normal limits. Mitral Regurgitation : Trace mitral regurgitation is noted. Mitral Stenosis: No mitral stenosis noted. Mitral valve prolapse : none noted. AORTIC VALVE: seems to be trileaflet with thickening but adequate excursion. Aortic stenosis : No aortic stenosis noted. Aortic regurgitation : No aortic incompetence noted. TRICUSPID VALVE : mobility and structures within normal limit. Tricuspid stenosis : no tricuspid stenosis noted. Tricuspid regurgitation : trace tricuspid regurgitation noted. Estimated RVSP : TR jet not well-defined to accurately estimate RVSP. PULMONARY VALVE : was not well visualized but no significant abnormalities suspected. Pulmonary stenosis : no significant pulmonary stenosis noted. Pulmonary regurgitation : no significant pulmonary regurgitation noted. MASSES AND THROMBUS : No definite intracardiac thrombus or masses are noted. PERICARDIUM: No pericardial effusion was noted. IMPRESSION : 1. Normal LVEF. 2. Mild LVH noted. 3. Grade II Diastolic Dysfunction noted. 4. LA and RV mildly dilated. 5. No significant valvular regurgitation or stenosis noted. 6. Study is technically difficult therefore clinical correlation is requested.. MMode/2D Measurements & Calculations RVDd: 3.6 cm LVIDd: 4.5 cm FS: 36.2 % Ao root diam: 3.0 cm IVSd: 0.94 cm LVIDs: 2.9 cm EDV(Teich): 93.6 ml Ao root area: 7.1 cm2 LVPWd: 1.00 cm ESV(Teich): 31.9 ml LA dimension: 3.5 cm EF(Teich): 65.9 % Doppler Measurements & Calculations MV E max dinah: MV P1/2t max dinah: Ao V2 max: LV V1 max P.7 cm/sec 58.2 cm/sec 129.0 cm/sec 4.0 mmHg MV A max dinah: MV P1/2t: 77.5 msec Ao max P.7 mmHg LV V1 max: 83.9 cm/sec MVA(P1/2t): 2.8 cm2 99.7 cm/sec MV E/A: 0.70 MV dec slope: 220.0 cm/sec2 MV dec time: 0.25 sec PA V2 max: TR max dinah: MV P1/2t-pr_phl: 79.0 cm/sec 219.8 cm/sec 77.5 msec PA max PG: TR max P.3 mmHg 2.5 mmHg : RENARD WALTON Shyamal
== END ==
LOC: SP 08:28
PROVIDERS: ATTEND Internal Medicine Pulmonary Disease
DX: R06.09 Other forms of dyspnea (principal)
CPT/HCPCS: 93306

== ENCOUNTER 2019-12-20 11:34 | Emergency (ER) | payer BC ==
[2019-12-20] MEDS ORDERED: ASPIRIN 81 MG TABLET, CHEWABLE PO ONE (12:18)
--- NOTE | 2019-12-20 12:23 | ER Document Report ---
ED Medical Screen (RME) - General Chief Complaint: Chest Pain Stated Complaint: CHEST PAIN Time Seen by Provider: 12/20/19 12:11 Primary Care Provider: RENARD WALTON MD [Primary Care Provider] - Follow up as needed Notes: Patient is a 54-year-old male presents emergency department with a chief complaint of chest pain. Patient states that he has had chest pain for the past few days. Patient states that he felt congested and took an allergy pill and started having chest pains this morning around 9:00 this morning. He has history of a stent placement for 90% blockage when they were testing him for pulmonary artery hypertension [place]. This was back in November. Patient took a nitroglycerin this morning. States that the chest pain has gone away. He takes aspirin daily, but has not taken it today. Exam: S1, S2. EKG shows sinus bradycardia with a rate of 58. No change from prior EKG. I have greeted and performed a rapid initial assessment of this patient. A comprehensive ED assessment and evaluation of the patient, analysis of test results and completion of medical decision making process will be conducted by an additional ED providers. TRAVEL OUTSIDE OF THE [place] IN LAST 30 DAYS: No - Related Data Allergies/Adverse Reactions: No Known Drug Allergies Adverse Reaction (Verified 10/13/18 17:02) Past Medical History - Past Medical History Cardiac Medical History: Reports: Hx Hypertension Pulmonary Medical History: Reports: Hx Asthma Renal/ Medical History: Denies: Hx Peritoneal Dialysis - Immunizations Hx Diphtheria, Pertussis, Tetanus Vaccination: Yes Physical Exam - Vital signs Vitals: Temp Pulse Resp BP Pulse Ox 97.9 F 65 18 123/88 H 98 12/20/19 11:42 12/20/19 11:42 12/20/19 11:42 12/20/19 11:42 12/20/19 11:42 Course - Vital Signs Vital signs: Temp Pulse Resp BP Pulse Ox 97.9 F 65 18 123/88 H 98 12/20/19 11:42 12/20/19 11:42 12/20/19 11:42 12/20/19 11:42 12/20/19 11:42 Doctor's Discharge - Discharge Referrals: RENARD WALTON MD [Primary Care Provider] - Follow up as needed
[2019-12-20 12:50] LABS: ABSOLUTE BASOPHILS # (AUTO) 0.1 10^3/uL (0.0-0.2); ABSOLUTE EOSINOPHILS # (AUTO) 0.6 10^3/uL (0.0-0.6); ABSOLUTE LYMPHOCYTES (AUTO) 2.1 10^3/uL (0.5-4.7); ABSOLUTE MONOCYTES (AUTO) 0.6 10^3/uL (0.1-1.4); ABSOLUTE NEUT (AUTO) 2.6 10^3/uL (1.7-8.2); BASOPHILS % (AUTO) 1.1 % (0-2); EOSINOPHILS % (AUTO) 10.7 % (0-6); HEMATOCRIT 44.6 % (37.9-51.0); HEMOGLOBIN 15.6 g/dL (13.5-17.0); LYMPHOCYTES % (AUTO) 34.5 % (13-45); MEAN CORPUSCULAR HEMOGLOBIN 30.5 pg (27.0-33.4); MEAN CORPUSCULAR VOLUME 87 fl (80-97); MONOCYTES % (AUTO) 9.4 % (3-13); PLATELET COUNT 163 10^3/uL (150-450); RED BLOOD COUNT 5.12 10^6/uL (4.35-5.55); RED CELL DISTRIBUTION WIDTH 13.7 % (11.5-14.0); SEGMENTED NEUTROPHILS % (AUTO) 44.3 % (42-78); TOTAL CELLS COUNTED % (AUTO) 100 %
--- NOTE | 2019-12-20 12:52 | RADIOLOGY REPORT (SQ) ---
EXAM DESCRIPTION: CHEST SINGLE VIEW IMAGES COMPLETED DATE/TIME: 12/20/2019 12:40 pm REASON FOR STUDY: chest pain COMPARISON: 10/11/2019 EXAM PARAMETERS: NUMBER OF VIEWS: One view. TECHNIQUE: Single frontal radiographic view of the chest acquired. RADIATION DOSE: NA LIMITATIONS: None. FINDINGS: LUNGS AND PLEURA: No opacities, masses or pneumothorax. No pleural effusion. MEDIASTINUM AND HILAR STRUCTURES: No masses. Contour normal. HEART AND VASCULAR STRUCTURES: Heart normal in size. Normal vasculature. BONES: No acute findings. HARDWARE: None in the chest. OTHER: No other significant finding. IMPRESSION: NO ACUTE RADIOGRAPHIC FINDING IN THE CHEST. TECHNICAL DOCUMENTATION: JOB ID: [id number] 2010 [employer]- All Rights Reserved Reading location - IP/workstation name: [email or web address]
[2019-12-20 12:59] LABS: ALKALINE PHOSPHATASE 62 U/L (38-126); ANION GAP 9 (5-19); ASPARTATE AMINO TRANSFERASE 36 U/L (17-59); BILIRUBIN,DIRECT 0.2 mg/dL (0.0-0.4); BILIRUBIN,TOTAL 0.5 mg/dL (0.2-1.3); BLOOD UREA NITROGEN 15 mg/dL (7-20); CALCIUM 9.7 mg/dL (8.4-10.2); CARBON DIOXIDE 22 mmol/L (22-30); CHLORIDE 108 mmol/L (98-107); CREATINE KINASE 93 U/L (55-170); GLUCOSE 118 mg/dL (75-110); POTASSIUM 4.2 mmol/L (3.6-5.0); TOTAL PROTEIN 7.2 g/dL (6.3-8.2)
[2019-12-20 13:09] LABS: CREATINE KINASE MB 0.72 ng/mL (<4.55)
[2019-12-20 13:11] LABS: TROPONIN I < 0.012 ng/mL
--- NOTE | 2019-12-20 15:05 | ER Document Report ---
ED Cardiac - General Chief Complaint: Chest Pain Stated Complaint: CHEST PAIN Time Seen by Provider: 12/20/19 12:11 Primary Care Provider: RENARD WALTON MD [ACTIVE PROVISIONAL STAFF] - Follow up as needed Mode of Arrival: Ambulatory Information source: Patient Notes: 54-year-old male past medical history significant for hypertension, hyperlipidemia, previous stenting in November of this year presents emergency room with sudden onset of stabbing midsternal chest pain that started around 930 this morning. States it only lasted a minute or 2. States he called the nurse at Dr. Beckwith's office, his manager floor and was told to take nitro and go to the emergency room. Patient states that the pain was gone prior to him taking nitro. Denies any nausea, vomiting, no shortness of breath, no difficulty breathing. No history of DVT or PEs. Currently pain-free. TRAVEL OUTSIDE OF THE [place] IN LAST 30 DAYS: No - Related Data Allergies/Adverse Reactions: No Known Drug Allergies Adverse Reaction (Verified 12/20/19 13:18) Past Medical History - General Information source: Patient - Social History Smoking Status: Former Smoker Chew tobacco use (# tins/day): No Frequency of alcohol use: None Drug Abuse: None Family History: CAD Patient has homicidal ideation: No - Past Medical History Cardiac Medical History: Reports: Hx Hypertension Pulmonary Medical History: Reports: Hx Asthma Renal/ Medical History: Denies: Hx Peritoneal Dialysis - Immunizations Hx Diphtheria, Pertussis, Tetanus Vaccination: Yes Review of Systems - Review of Systems Constitutional: No symptoms reported EENT: No symptoms reported Cardiovascular: Chest pain Gastrointestinal: No symptoms reported Musculoskeletal: No symptoms reported Neurological/Psychological: No symptoms reported -: Yes All other systems reviewed and negative Physical Exam - Vital signs Vitals: Temp Pulse Resp BP Pulse Ox 97.9 F 65 18 123/88 H 98 12/20/19 11:42 12/20/19 11:42 12/20/19 11:42 12/20/19 11:42 12/20/19 11:42 - Notes Notes: GENERAL: Mild acute distress, non-toxic appearance. HEAD: Normal with no signs of head trauma. EYES: PERRLA, EOMI, conjunctiva normal, no discharge. EARS: Hearing grossly intact. NOSE: Normal. THROAT: Oropharynx is normal. NECK: Normal range of motion, no tenderness, supple, no lymphadenopathy, No adenopathy, no JVD. CHEST: Clear breath sounds bilaterally. No wheezes, rales, or rhonchi. Nontender to palpation over the chest wall. CARDIAC: Regular rate and rhythm. S1 and S2, without murmurs, gallops, or rubs. VASCULAR: No Edema. Peripheral pulses normal and equal in all extremities. ABDOMEN: Normal and soft with no tenderness, no masses or pulsatile masses. No organomegaly. Positive bowel sounds x4. No CVA tenderness noted bilaterally. GASTROINTESTINAL: Bowel sounds normal LYMPATHTIC: No lymphadenopathy noted. MUSCULOSKELETAL: Good range of motion of all major joints. Extremities without clubbing, cyanosis or edema. NEUROLOGICAL: Alert and oriented x 3. No focal sensory or strength deficits. Speech normal. Follows commands appropriately. PSYCHIATRIC: Normal Affect, judgement and mood. SKIN: Normal appearance with no rashes or lesions. Course - Re-evaluation Re-evalutation: 12/20/19 15:27 HEART Score: History 1 ECG 0 Age 1 Risk Factors 2 Troponin 0 Total: 4 12/20/19 18:11 Patient remains pain-free. Troponin x2, EKGs x2 without any changes. . All test results were reviewed with the patient. We will attempt to reach patient's manager floor Dr. Beckwith at [facility] patient aware. 12/20/19 18:26 Patient remains pain-free. Did speak with Dr. Kendall, cardiology who is Dr. Beckwith is partner at [facility]. Reviewed lab findings, EKG findings with Dr. Kendall who feels patient is stable to be discharged home will follow up in the office outpatient. Patient is aware of the importance of calling for an outpatient follow-up appointment next week. Patient was given strict return to the emergency room guidelines. Return for any new or worsening symptoms. All questions were answered. Patient verbalized understanding and agrees with plan of care. 12/20/19 18:28 - Vital Signs Vital signs: Temp Pulse Resp BP Pulse Ox 97.9 F 65 13 118/83 97 12/20/19 11:42 12/20/19 11:42 12/20/19 16:01 12/20/19 16:01 12/20/19 16:01 - Laboratory Result Diagrams: 12/20/19 12:26 12/20/19 12:26 Laboratory results interpreted by me: 12/20/19 12/20/19 12:26 12:26 Eos % (Auto) 10.7 H Chloride 108 H Glucose 118 H ALT 68 H - Diagnostic Test Radiology reviewed: Reports reviewed - EKG Interpretation by Me EKG shows normal: Sinus rhythm Rate: Normal Additional EKG results interpreted by me: 12/20/19 15:05 EKG was interpreted by ED physician Dr. Hanna No acute STEMI Normal sinus rhythm Rate of 58 No significant change from EKG of 10/11/[address] wave abnormalities. 12/20/19 18:12 Repeat EKG was interpreted by ER physician Dr. Nayak No acute STEMI Sinus rhythm Rate of 59 Borderline T wave abnormalities Normal access Borderline T wave abnormalities are new since previous EKG of 12/20/2019 at 1139 - Consults [facility] Dr. Beckwith Time consulted: 18:05 - Spoke with transfer center and they will reach out to Dr. Beckwith Reason for consultation: 12/20/19 18:24 Patient with previous stenting by Dr. Beckwith at [facility] on November 06. Will await return call for disposition. Dr. Enoch Sampson consulted: 18:25 - Discuss patient Reason for consultation: 12/20/19 18:25 Received return phone call from Dr. Kendall cardiology at [facility] who is Dr. Beckwith's partner. Reviewed all lab and EKG findings with Dr. Kendall. Patient was seen in the office 1 week ago with some intermittent chest pain. States with negative troponins x2 and no significant EKG changes patient is stable to be discharged home with outpatient follow-up in the office. Consulted provider: follow-up in office Discharge - Discharge Clinical Impression: Chest pain of unknown etiology Condition: Stable Disposition: HOME, SELF-CARE Instructions: Chest Pain of Unclear Cause ([facility]) Additional Instructions: Call your manager floor for an outpatient follow-up appointment. Return to the emergency room for any new or worsening symptoms. Referrals: RENARD WALTON MD [ACTIVE PROVISIONAL STAFF] - Follow up as needed
[2019-12-20 16:32] VITALS: BP 118/83
--- NOTE | 2019-12-20 17:57 | EKG REPORT ---
SEVERITY:- BORDERLINE ECG - SINUS RHYTHM BORDERLINE T WAVE ABNORMALITIES : Confirmed by: Freddie Cloud 20-Dec-2019 17:56:39
--- NOTE | 2019-12-20 17:58 | EKG REPORT ---
SEVERITY:- NORMAL ECG - SINUS RHYTHM : Confirmed by: Freddie Cloud 20-Dec-2019 17:57:42
== END 2019-12-20 18:47 | disposition home or self-care (01) ==
LOC: ER 11:34
DX: R07.9 Chest pain, unspecified (principal); Z87.891 Personal history of nicotine dependence; I10 Essential (primary) hypertension; J45.909 Unspecified asthma, uncomplicated
CPT/HCPCS: 36415; 71045; 80053; 82550; 82553; 83735; 84484; 85025; 93005; 93010; 99285